=== PATIENT | female | born 1960 | race Caucasian/White ===

== ENCOUNTER 2022-12-08 14:00 | Outpatient (REF) | payer OTHER, SELFPAY ==
[2022-12-08 21:11] LABS: Hemoglobin A1C 5.8 % (<5.7)
[2022-12-08 21:16] LABS: Calculated LDL 156 mg/dL (<100); Cholesterol 231 mg/dL (<200); HDL Cholesterol 59 mg/dL (40-60); TSH < 0.01 uIU/mL (0.36-3.74); Triglyceride 82 mg/dL (<150)
[2022-12-08 21:32] LABS: FREE T4 1.99 ng/dL (0.76-1.46)
[2022-12-09 17:54] LABS: T3, Total 200 ng/dL (97-169)
== END 2022-12-08 14:01 | disposition home or self-care (01) ==
LOC: NCHCN 14:00
PROVIDERS: PCP Family Medicine; Visit Provider Family Medicine
DX: E03.9 Hypothyroidism, unspecified (principal); E78.49 Other hyperlipidemia; E05.00 Thyrotoxicosis with diffuse goiter without thyrotoxic crisis or storm; R73.03 Prediabetes
CPT/HCPCS: 80061; 83036; 84439; 84443; 84480

== ENCOUNTER 2023-02-16 17:02 | Outpatient (REF) | payer OTHER, SELFPAY ==
--- NOTE | 2023-02-16 15:30 | PAPFT_PTH ---
PATIENT: Jazmine Carroll LOC: [facility] U#:[id number] AGE/SX: 62/F ROOM: RE02/16/[address]: Katerine Richards : 1960 BED: DIS: 02/16/2023 SPEC #: [id number] RECD: 02/17/23 12:52 STATUS: RYLIE RELalit #: [id number] JOANNA: 02/16/23 15:[address]: Katerine Richards DEPT: [facility] Cytology RECD BY: Dilma Hennessy Tissues: 1 - CX/ENDOCX FOR PAP SMEARS Procedures: PAP THIN PREP/[facility] Screening HPV DNA PROBE Comments: [id number]
== END 2023-02-16 17:03 | disposition home or self-care (01) ==
LOC: NCHCN 17:02
PROVIDERS: PCP Family Medicine; Visit Provider Family Medicine
DX: Z00.00 Encounter for general adult medical examination without abnormal findings (principal); Z12.4 Encounter for screening for malignant neoplasm of cervix
CPT/HCPCS: 88142; 87624

== ENCOUNTER 2023-06-25 13:01 | Outpatient (REF) | payer OTHER, SELFPAY ==
[2023-06-25 21:29] LABS: Anion Gap 11.2 mmol/L (3-11); BUN 17 mg/dL (7-18); CO2 24.8 mmol/L (21.0-32.0); CREATININE 0.8 mg/dL (0.55-1.02); Calcium 9.7 mg/dL (8.5-10.1); Chloride 105 mmol/L (98-107); Estimated GFR 83.78 (mL/min/1.73m2); FREE T4 1.36 ng/dL (0.76-1.46); Glucose 99 mg/dL (74-106); Potassium 3.4 mmol/L (3.5-5.1); Sodium 141 mmol/L (136-145)
[2023-06-25 21:30] LABS: TSH < 0.01 uIU/mL (0.36-3.74)
[2023-06-26 22:54] LABS: T3, Total 105 ng/dL (97-169)
== END 2023-06-25 13:02 | disposition home or self-care (01) ==
LOC: NCHCN 13:01
PROVIDERS: PCP Family Medicine; Visit Provider Family Medicine
DX: E05.90 Thyrotoxicosis, unspecified without thyrotoxic crisis or storm (principal)
CPT/HCPCS: 80048; 84439; 84443; 84480

== ENCOUNTER 2024-02-28 13:18 | Outpatient (REF) | payer OTHER, SELFPAY ==
[2024-02-28 15:50] LABS: TSH (W/Ref FT4) < 0.01 uIU/mL (0.36-3.74); Vitamin D 25 Total 35.5 ng/mL (30-100)
[2024-02-28 16:18] LABS: FREE T4 1.83 ng/dL (0.76-1.46)
== END 2024-02-28 13:19 | disposition home or self-care (01) ==
LOC: NCHCN 13:18
PROVIDERS: PCP Family Medicine; Visit Provider Family Medicine
DX: R25.2 Cramp and spasm (principal); M85.89 Other specified disorders of bone density and structure, multiple sites; E03.8 Other specified hypothyroidism
CPT/HCPCS: 82306; 83735; 84439; 84443

== ENCOUNTER 2025-03-05 16:24 | Outpatient (REF) | payer BC, SELFPAY ==
[2025-03-05 14:55] LABS: Hemoglobin A1C 5.6 % (<5.7)
[2025-03-05 15:31] LABS: Anion Gap 11.4 mmol/L (3-11); BUN 12 mg/dL (7-18); CO2 26.6 mmol/L (21.0-32.0); Calcium 10.2 mg/dL (8.5-10.1); Chloride 103 mmol/L (98-107); Estimated GFR 97.72 (mL/min/1.73m2); Glucose 95 mg/dL (74-106); Potassium 4.4 mmol/L (3.5-5.1); Sodium 141 mmol/L (136-145); Vitamin D 25 Total 34 ng/mL (30-100)
[2025-03-05 22:55] LABS: T3, Total 217 ng/dL (97-169)
== END 2025-03-05 16:25 | disposition home or self-care (01) ==
LOC: NCHCN 16:24
PROVIDERS: PCP Family Medicine; Visit Provider Family Medicine
DX: E05.90 Thyrotoxicosis, unspecified without thyrotoxic crisis or storm (principal); R73.03 Prediabetes; R63.5 Abnormal weight gain; E55.9 Vitamin D deficiency, unspecified; E87.6 Hypokalemia
CPT/HCPCS: 80048; 82306; 82533; 83036; 84480

== ENCOUNTER 2025-05-29 15:35 | Outpatient (REF) | payer BC, SELFPAY ==
[2025-05-29 21:15] LABS: TSH < 0.01 uIU/mL (0.55-4.78)
== END 2025-05-29 15:36 | disposition home or self-care (01) ==
LOC: NCHCN 15:35
PROVIDERS: Internal Medicine Endocrinology, Diabetes & Metabolism; PCP Family Medicine; Visit Provider Family Medicine
DX: E03.9 Hypothyroidism, unspecified (principal)
CPT/HCPCS: 84439; 84443